=== PATIENT | male | born 1955 | race Caucasian/White ===

== ENCOUNTER 2018-06-09 10:13 | Emergency (ER) | payer OTHER ==
[2018-06-09 10:22] VITALS: BP 134/79
[2018-06-09] MEDS ORDERED: Tetan/Diph/Pertus SYR(Tdap)* 0.5 ML SYR(BOOSTRIX) use SYR IM ONE (10:28)
--- NOTE | 2018-06-09 10:53 | UC ---
Hand/Wrist HPI - HPI Summary HPI Summary: Patient: injury to base of left index finger from a drill bit yesterday. Mild discomfort. Mild redness. Restricted flexion. MD: SALVADOR; afebrile; 134/29; 98.2 Nurse's note: pt was using a drill yesterday am and slipped and cut himself to lt 2nd finger. pt last tetanus was 2006. - History Of Current Complaint Chief Complaint: UCUpperExtremity Stated Complaint: L HAND INJURY WC Time Seen by Provider: 06/09/18 10:22 Pain Intensity: 4 - Allergies/Home Medications Allergies/Adverse Reactions: Allergies Allergy/AdvReac Type Severity Reaction Status Date / Time No Known Allergies Allergy Verified 06/09/18 10:22 Home Medications: Home Medications Ascorbic Acid TAB* [Vitamin C TAB*] 1 tab DAILY 06/09/18 [History Confirmed ] Aspirin 81 mg PO 06/09/18 [History] Cyanocobalamin (Vitamin B-12) [Vitamin B-12] 1 tab DAILY 06/09/18 [History Confirmed 06/09/18] PMH/Surg Hx/FS Hx/Imm Hx - Additional Past Medical History Additional PMH: PMH: negative and non contributory 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[employer]; financial project manager hx: CVD Previously Healthy: Yes - Surgical History Surgical History: None - Social History Alcohol Use: Occasionally Substance Use Type: None Smoking Status (MU): Never Smoked Tobacco Review of Systems All Other Systems Reviewed And Are Negative: Yes Constitutional: Positive: Negative Skin: Positive: Negative Eyes: Positive: Negative ENT: Positive: Negative Respiratory: Positive: Negative Cardiovascular: Positive: Negative Gastrointestinal: Positive: Negative Genitourinary: Positive: Negative Motor: Positive: Negative Neurovascular: Positive: Negative Musculoskeletal: Positive: Negative - left index, Decreased ROM - left index, Edema, Myalgia - left index Neurological: Positive: Negative Psychological: Positive: Negative Is Patient Immunocompromised?: No Physical Exam Triage Information Reviewed: Yes Appearance: Well-Appearing Vital Signs: Initial Vital Signs Temp 98.2 F 06/09/18 10:19 Pulse 77 06/09/18 10:19 Resp 18 06/09/18 10:19 BP 134/79 06/09/18 10:19 Pulse Ox 99 06/09/18 10:19 Vital Signs Reviewed: Yes Eye Exam: Normal ENT Exam: Normal Dental Exam: Normal Neck exam: Normal Neck: Positive: 1 Respiratory Exam: Normal Cardiovascular Exam: Normal Abdominal Exam: Normal Musculoskeletal: Positive: ROM Limited @ - left index, Edema @ - left index; drill entry wound at volar, MCP; no fracture seen on x ray; finger swollen; restricted flexion; mild erythema at entry site. No exit wound. No ascending cellulitis, or lympangitis. No tenderness along flexor tendon in palm of the hand.. Negative: ROM Intact, No Edema Neurological Exam: Normal Psychological Exam: Normal Skin Exam: Normal Images Hands: 1 - drill wound. negative for fracture by x ray Hand/Wrist Course/Dx - Course Course Of Treatment: left index; drill entry wound at volar, MCP; no fracture seen on x ray; finger swollen; restricted flexion; mild erythema at entry site. No exit wound. No ascending cellulitis, or lympangitis. Will start on Keflex, 4 times a day; patient given 1 g of Ancef. Will follow up in two days; sooner if condition worsens. Dx is cellulitis of left index finger in area of volar MCP. Medications reviewed. Hypertension noted and discussed. Patient is urgent/emergent. On now BP meds. - Differential Dx/Diagnosis Differential Diagnosis/HQI/PQRI: Cellulitis, Contusion, Fracture Provider Diagnosis: Cellulitis Discharge - Sign-Out/Discharge Documenting (check all that apply): Patient Departure All imaging exams completed and their final reports reviewed: Yes - Discharge Plan Condition: Stable Disposition: HOME Patient Education Materials: Puncture Wound (ED) Referrals: Maximus Issa MD [Primary Care Provider] - Additional Instructions: WE DISCUSSED: You have a puncture wound to the base of your left index finger. The area is infected. Watch for any spreading infection. Recheck in 2 days with your doctor. Warm moist soaks. Go to ED if condition worsens. PLEASE SEEK CARE AT THE EMERGENCY DEPARTMENT IF SYMPTOMS WORSEN OR IF NEW SYMPTOMS DEVELOP. FOLLOW UP WITH YOUR PRIMARY CARE PHYSICIAN IF CONDITION CONTINUES BEYOND 3 DAYS WITHOUT IMPROVEMENT. YOUR DIAGNOSIS IS: puncture wound and skin infection left index. YOUR PRESCRIPTION RECOMMENDATION IS: OTHER INSTRUCTIONS: Hypertension Discharge Instructions: Your blood pressure reading today was slightly elevated. Follow-up with your primary care provider within 4 weeks for blood pressure check and appropriate recommendations and treatment, as needed. FOR PAIN AND/OR SLEEP: For pain: Ibuprofen (Motrin and other brand names) 400-600mg PLUS acetaminophen (Tylenol and other brand names) 500mg - 1000mg every 8 hours. Maximum is 3 doses a day. If this dosage is required for more than 5 days, you should re-check with your doctor. The combination of these two over-the- counter medications can be more effective than each one taken alone. Please check with the pharmacist if you have questions about your allergies to these medications. To help you sleep: If you feel as if you want to calm down and get sleepy, over the counter diphenhydramine (Benadryl and other brand names), 25 mg up to every 8 hours may be useful. Please check with the pharmacist if you have questions about your allergies to these medications. - Billing Disposition and Condition Condition: STABLE Disposition: Home
[2018-06-09] MEDS ORDERED: ceFAZolin 1 GM VIAL(*) IM ONE (11:04)
== END 2018-06-09 12:10 | disposition home or self-care (01) ==
LOC: UCEAST 10:13
DX: L03.012 Cellulitis of left finger (principal); Z79.82 Long term (current) use of aspirin
CPT/HCPCS: 73140; 90471; 90715; 96372; 99202; G0463; J0690

== ENCOUNTER 2019-02-27 16:47 | Emergency (ER) | payer MEDICARE, OTHER ==
[2019-02-27 17:51] VITALS: BP 152/76
--- NOTE | 2019-02-27 18:04 | UC ---
Cardiac HPI - HPI Summary HPI Summary: 63-year-old male comes in with chief complaint of chest pain. This started several hours ago when he was up on the third step of a ladder cutting a branch off a tree. When the branch came off of the tree it knocked him off of the ladder and he fell to the ground on the branch on his chest. Patient felt like he was going to pass out felt lightheaded. This lasted approximately a minute. Since that time patient's had left anterior chest pain. Occasionally he feels a pop in his chest with some movements or taking a deep breath. Movements do make the pain worse. No complaint of any radiation of the pain. No shortness of breath at rest. No complaint of any abdominal pain head injury neck injury or extremity injury. - History of Current Complaint Chief Complaint: UCTrauma Stated Complaint: RIB PAIN Time Seen by Provider: 02/27/19 17:05 Pain Intensity: 7 - Allergy/Home Medications Allergies/Adverse Reactions: Allergies Allergy/AdvReac Type Severity Reaction Status Date / Time No Known Allergies Allergy Verified 02/27/19 17:00 Home Medications: Home Medications Cetirizine HCl [Zyrtec] 10 mg PO DAILY 02/27/19 [History Confirmed 02/27/19] PMH/Surg Hx/FS Hx/Imm Hx Previously Healthy: Yes - Surgical History Surgical History: None - Family History Known Family History: Positive: Non-Contributory - Social History Alcohol Use: Occasionally Substance Use Type: None Smoking Status (MU): Never Smoked Tobacco Review of Systems All Other Systems Reviewed And Are Negative: Yes Constitutional: Positive: Other - SEE HPI Skin: Positive: Negative Eyes: Positive: Negative ENT: Positive: Negative Respiratory: Positive: Negative Cardiovascular: Positive: Chest Pain Gastrointestinal: Positive: Negative Motor: Positive: Negative Neurovascular: Positive: Negative Musculoskeletal: Positive: Negative Neurological: Positive: Negative Psychological: Positive: Negative Is Patient Immunocompromised?: No Physical Exam Triage Information Reviewed: Yes Appearance: Well-Appearing, Well-Nourished, Pain Distress - MILD WITH ROM Vital Signs: Initial Vital Signs Temp 98.4 F 02/27/19 16:55 Pulse 84 02/27/19 16:55 Resp 20 02/27/19 16:55 BP 130/74 02/27/19 16:55 Pulse Ox 100 02/27/19 16:55 Vital Signs Reviewed: Yes Eye Exam: Normal Eyes: Positive: Conjunctiva Clear ENT: Positive: TMs normal - No hemotympanum, Other - Normal cephalic atraumatic. Neck is nontender to palpation. Neck: Positive: Supple, Nontender Respiratory: Positive: Lungs clear, Normal breath sounds, No respiratory distress, Other: - Mild tenderness to palpation left anterior chest. There is some erythema that is blanching at the site. Cardiovascular: Positive: RRR Abdomen Description: Positive: Nontender, Soft Bowel Sounds: Positive: Present Musculoskeletal: Positive: Strength Intact, ROM Intact Neurological: Positive: Alert, Muscle Tone Normal Psychological: Positive: Normal Response To Family, Age Appropriate Behavior Skin: Positive: Other - There is some erythema that is blanching at the site of the chest tenderness. Diagnostics - EKG Cardiac Rate: NL - at 1739 Cardiac Rhythm: Sinus: Normal - 80bpm Ectopy: None Summary of EKG Findings: Minimal ST elevation anterior leads. I compared his EKG to his 2009 EKG and I do not see any significant anterior lead differences. - Assessment/Plan Course Of Treatment: Housing Management Officer: Josias Payan Daniel, ([id number]) Gourmet Coffee Attendant: EFFIE ( EFFIE) Report Date: 02/27/2019 17:14:00 Report Status: Final ====== Start of Report Content Patient Name: HAO SMITH Medical Record#: [id number] Ordering Physician: Maximus Jones MD Acct.#: [id number] : 07/1955 Age: 63 Sex: M Location: [facility] Exam Date: 02/27/191713 ADM Status: REG ER Order Information: RIBS LT UNI W/PA CH MIN 3 VWS Accession Number: [id number] CPT: 82371 HISTORY: left anterior pain s/p fall COMPARISONS: None relevant available at the time of dictation. VIEWS: 8, Frontal view of the chest with frontal and oblique views of the left hemithorax FINDINGS: There is no displaced rib fracture or pneumothorax. The visualized lungs are clear. There is a mild scoliotic curvature of the spine. IMPRESSION: NO DISPLACED RIB FRACTURE OR PNEUMOTHORAX. <Electronically signed by Josias Payan MD in OV> 02/27/191740 Dictated By: Josias Payan MD Dictated Date/Time: 02/27/191740 Transcribed Date/Time: 02/27/191740 Copy to: CC:Maximus Issa MD; Maximus Jones MD Imaging - [facility] Imaging - [facility] Imaging - [facility] [address] [address] ph ([phone]) ph ) ([phone]) End of Report Content I discussed the x-rays and EKG with the patient and his . Patient's orthostatics were normal. Patient did get slightly dizzy going from laying to sitting but not from sitting to standing. He is not hypotensive or tachycardic here in clinic. His abdomen is soft and nontender denies any head injuries. Denies any neck pain. His EKG does show minimal ST elevation in the anterior leads and compared this 2009 EKG they did not see any significant changes in the anterior leads. We discussed cardiac contusion and other injuries with blunt trauma to the chest. I discussed that in the emergency department he would check troponins a potentially do a CT scan of the chest which would ensure complete evaluation of his injury. Plan is ibuprofen as needed and go to the emergency department he does not improve or if he worsens in any way. - Clinical Impression Provider Diagnosis: Contusion of left chest wall, Near syncope Discharge ED - Sign-Out/Discharge Documenting (check all that apply): Patient Departure All imaging exams completed and their final reports reviewed: Yes - Discharge Plan Condition: Stable Disposition: HOME Patient Education Materials: Near Syncope (ED), Blunt Chest Trauma (ED) Referrals: Maximus Issa MD [Primary Care Provider] - Additional Instructions: GO TO THE EMERGENCY DEPARTMENT IF NOT COMPLETELY IMPROVED. GO TO THE EMERGENCY DEPARTMENT IF YOUR CONDITION WORSENS; PAIN, SHORTNESS OF BREATH. YOU FEEL LIGHTHEADED, YOU FEEL LIKE PASSING OUT, COUGHING UP BLOOD OR ANY QUESTIONS OR CONCERNS. - Billing Disposition and Condition Condition: STABLE Disposition: Home
[2019-02-27] MEDS ORDERED: Ibuprofen TAB* 600 MG PO ONE (18:20)
== END 2019-02-27 18:30 | disposition home or self-care (01) ==
LOC: UCEAST 16:47
DX: S20.212A Contusion of left front wall of thorax, initial encounter (principal); W11.XXXA Fall on and from ladder, initial encounter; Y93.H2 Activity, gardening and landscaping; Y92.017 Garden or yard in single-family (private) house as the place of occurrence of the external cause; Y99.8 Other external cause status; R55 Syncope and collapse
CPT/HCPCS: 93005; 99212; A9270-GY; G0463